=== PATIENT | female | born 1995 | race Asian ===

== ENCOUNTER 2018-02-21 19:00 | Emergency (ER) | payer OTHER ==
[~2018-02-21] VITALS: Ht 157.5 cm; Wt 56.8 kg
[2018-02-21 22:33] VITALS: BP 108/63
== END 2018-02-22 00:11 | disposition home or self-care (01) ==
LOC: EMS 19:02
DX: R07.89 Other chest pain (principal); M25.512 Pain in left shoulder
CPT/HCPCS: 93005; 99284